=== PATIENT | male | born 2005 | race Caucasian/White ===

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

== ENCOUNTER 2024-09-12 09:16 | Outpatient (CLI) | payer BC, SELFPAY ==
--- NOTE | ~2024-09-12 | XR_ITS ---
XR wrist RT min 3V Ordering provider: Bernard Holloway MD History: . M25.531 - Pain in right wrist . Comparison: None. FINDINGS: BONES: No acute fracture or dislocation. No definite scaphoid fracture. JOINT SPACES: Normal. SOFT TISSUES: Normal. IMPRESSION: No acute osseous abnormality right wrist. Reviewed, dictated and finalized at location A.
--- OUTSIDE RECORDS SUMMARY | 2024-09-12 10:13 | XMS_ITS | Clinical Summary ---
Author Organization [facility] [address] Address [address] [place] [phone] Care Team Providers Care Party Plan Selling Distributor Name Role Phone Apolinar Quarles MD Primary Care Prov ider Allergies No known active allergies Medications meloxicam (MOBIC) 15 mg tabletIndication s:Acute pain of right wrist Take 1 tablet (15 mg total) by mouth daily for 14 days 14 tablet 06/08/2024 Active Active Problems Problem Noted Date Diagnosed Date Acute left ankle pain 11/05/2021 Family History Medical History Relation Name Comments Diabetes Maternal Grandfather Heart disease Maternal Grandfather Hypertension Maternal Grandfather Clotting disorder Maternal Grandmother Hypertension Maternal Grandmother Rheum arthritis Maternal Grandmother Hypertension Mother Rheum arthritis Mother's Brother Cancer Paternal Grandfather Relation Name Status Comments Maternal Grandfather Maternal Grandmother Mother Mother's Brother Paternal Grandfather Social History Tobacco Use Types Packs/Day Years Used Date Smoking Tobacco: Never Smokeless Tobacco: Never Tobacco Cessation:Counseling Given: Not Answered Sex and Gender Information Value Date Recorded Sex Assigned at Not on file Legal Sex Male 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 Gender Identity Not on file Sexual Orientation Not on file 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61 06/08/2024 5:17 PM GRIT 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 Plan of Treatment Health Maintenance Due Date Last Done Comments Depression Screening 2003 Hepatitis C Screening 2003 DTaP/Tdap/Td Vaccine (1 - Tdap) 2014 Varicella Vaccines (1 of 2 - 13+ 2-dose series) 2016 HPV Vaccines (1 - Male 3-dos e series) 2018 Meningococcal B Vaccine (1 o f 2 - Standard) 2019 Hepatitis B Screening 2021 Regular Well Visit/Exam 18-64 2021 Covid-19 Vaccine (3 - 2023-2 5 season) 2024 10/07/2020, 09/16/2020 Influenza Vaccine (#1) 2024 Meningococcal Vaccine Aged Out No michele mark eligible based on patient's age to complete this topic Pneumococcal vaccine <65 Aged Out No longer eligible based on patient's age to complete this topic Insurance [employer] O[employer] ACCESS OOS [employer] ACCESS OOS Care Teams Party Plan Selling Distributor Relationship Specialty Start Date End Date Apolinar Quarles MD [address] [place] [id number] PCP - General Family Medicine 08/25/21
--- OUTSIDE RECORDS SUMMARY | 2024-09-12 10:13 | XMS_ITS | Clinical Summary ---
Author Organization [facility] Address [address] [facility] [place] [address] Care Team Providers Care Louver Mortiser Operator Name Role Phone Apolinar Quarles MD Primary Care Provider + Source Comments [facility] [id number],non-owned Affiliates and Associated Physician Practices is amultiple site organization consisting of ambulatory clinics and hospital sitesin [place], [place], [place] and [place]. This disclosure is being madepursuant to the Care Everywhere program and may not contain all information available regarding this patient. Last updated 18.[id number] Allergies No known active allergies Medications Be aware that medications may not be up to date on this document. Always verify current medications with the patient. No known medications Family History Medical History Relation Name Comments Hypertension Mother Relation Name Status Comments Mother Alive Social History Tobacco Use Types Packs/Day Years Used Date Smoking Tobacco: Never Smokeless Tobacco: Never Comments:non smoking home Sex and Gender Information Value Date Recorded Sex Assigned at Not on file Gender Identity Not on file Sexual Orientation Not on file Last Filed Vital Signs Vital Sign Reading Time Taken Comments Blood Pressure 110/62 09/05/2020 5:37 PM CDT Pulse 70 09/05/2020 5:37 PM CDT Temperature 36.8 C (98.3 F) 09/05/2020 5:37 PM CDT Respiratory Rate 20 09/05/2020 5:37 PM CDT Oxygen Saturation 99% 07/03/2019 11:25 AM LICENSED PHYSICAL THERAPIST ASSISTANT Inhaled Oxygen Concentration - - Weight 77.1 kg (170 lb) 09/05/2020 5:37 PM CDT Height 192 cm (6' 3.59 ) 09/05/2020 5:37 PM CDT Body Mass Index 20.92 09/05/2020 5:37 PM CDT Plan of Treatment Health Maintenance Due Date Last Done Comments HIV SCREENING 2018 HPV VACCINE (1 - Male 3-dose series) 2018 MENINGOCOCCAL (Group B) VACC INE SHARED DECISION-MAKING (1 of 2 - Standard) 2019 HEPATITIS C SCREENING 04/20/2021 DTAP/TDAP/TD VACCINES (1 - Tdap) 2022 HEPATITIS B VACCINE (1 of 3 - 19+ 3-dose series) 2022 COVID-19 VACCINE (1 - 2023-2 5 season) 2024 INFLUENZA VACCINE (#1) 2024 DEPRESSION SCREENING 06/22/2024 ZOSTER VACCINE (1 of 2) 2053 HIB VACCINE Aged Out No longer eligi ble based on patient's age to complete this topic MENINGOCOCCAL GROUPS A/C/Y/W VACCINE Aged Out No longer eligible b ased on patient's age to complete this topic PNEUMOCOCCAL VACCINE Aged Out No long er eligible based on patient's age to complete this topic Care Teams Louver Mortiser Operator Relationship Specialty Start Date End Date Apolinar Quarles MD [address] [address] PCP - General Family Medicine 02/04/17
--- OUTSIDE RECORDS SUMMARY | 2024-09-12 10:13 | XMS_ITS | Referral Summary ---
Author Organization [facility] [address] [place] Address [address] [place] [phone] Care Team Providers Care Chopper Feeder Name Role Phone Apolinar Quarles MD Primary Care Prov ider Allergies No known active allergies Medications meloxicam (MOBIC) 15 mg tabletIndication s:Acute pain of right wrist Take 1 tablet (15 mg total) by mouth daily for 14 days 14 tablet 06/08/2024 Active Active Problems Problem Noted Date Diagnosed Date Acute left ankle pain 11/05/2021 Social History Tobacco Use Types Packs/Day Years Used Date Smoking Tobacco: Never Smokeless Tobacco: Never Tobacco Cessation:Counseling Given: Not Answered Sex and Gender Information Value Date Recorded Sex Assigned at Not on file Legal Sex Male 11:00 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 Gender Identity Not on file Sexual Orientation Not on file 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 file Not on file Not on file Last Filed Vital Signs Vital Sign Reading Time Taken Comments Blood Pressure 124/74 06/08/2024 5:17 PM CAREER 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 Pulse 66 06/08/2024 5:17 PM CAREER 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 Temperature 37 C (98.6 F) 06/08/2024 5:17 PM CAREER 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 Respiratory Rate 20 06/08/2024 5:17 PM CAREER 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 Oxygen Saturation 99% 06/08/2024 5:17 PM CAREER 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 Inhaled Oxygen Concentration - - Weight 89.3 kg (196 lb 14.4 oz) 06/08/2024 5:17 PM CAREER 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 Height 190.5 cm (6' 3 ) 06/08/2024 5:17 PM CAREER 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 Body Mass Index 24.61 06/08/2024 5:17 PM CAREER 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 Plan of Treatment Not on file Insurance [employer] ACCESS OOS [employer] OOS [employer] OOS Care Teams Chopper Feeder Relationship Specialty Start Date End Date Apolinar Quarles MD [address] [place] [address] PCP - General Family Medicine 08/25/21
--- OUTSIDE RECORDS SUMMARY | 2024-09-12 10:13 | XMS_ITS | Encounter Summary ---
Author Organization [facility] Address [address] [place] [address] Care Team Providers Care Director Mission Name Role Phone Apolinar Quarles MD Primary Care Prov ider Encounter Details Date Type Department Care Team (Late st Contact Info) Description 11/08/2021 Telephone [facility] [id number] [place] [phone] Rosy Mason, RT Social History Tobacco Use Types Packs/Day Years Used Date Smoking Tobacco: Never Smokeless Tobacco: Never Sex and Gender Information Value Date Recorded Sex Assigned at Not on file Legal Sex Male 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
== END 2024-09-12 09:17 | disposition home or self-care (01) ==
PROVIDERS: PCP Family Medicine Adolescent Medicine; Visit Provider Plastic Surgery
DX: M25.531 Pain in right wrist (principal)
CPT/HCPCS: 73110

== ENCOUNTER 2025-03-04 22:10 | Emergency (ER) | payer BC, SELFPAY ==
--- NOTE | ~2025-03-04 | CT_ITS ---
EXAMINATION: CT brain wo con COMPARISON: None HISTORY: hea dinjury TECHNIQUE: Axial images were obtained through the brain without IV contrast. CT scan performed using dose optimization techniques including the following automated exposure control; adjustment of mA and/or kV; use of iterative reconstruction technique. Automatic exposure control was used to reduce radiation dose. Permanent radiation dose record is archived to PACS. FINDINGS: No acute infarct or parenchymal hemorrhage. No abnormal mass or mass effect. No midline shift. No extra-axial fluid collections. No hydrocephalus. . Mastoid air cells unremarkable. Sinuses and orbits unremarkable. No acute fracture. No significant facial or scalp soft tissue swelling evident. No radiopaque foreign body is seen. Impression: 1.No acute intracranial abnormality. Reviewed, dictated and finalized at location A. Impression: 1.No acute intracranial abnormality.
--- OUTSIDE RECORDS SUMMARY | 2025-03-04 22:13 | XMS_ITS | Clinical Summary ---
Author Organization [facility] [employer] Address [address] [facility] [place] [address] Care Team Providers Care Lithographic Photographer Name Role Phone Apolinar Quarles MD Primary Care Provider + Source Comments [facility] [employer],non-owned Affiliates and Associated Physician Practices is amultiple site organization consisting of ambulatory clinics and hospital sitesin [place], [place], [place] and [place]. This disclosure is being madepursuant to the Care Everywhere program and may not contain all information available regarding this patient. Last updated 18.[employer] Allergies No known active allergies Medications * Be aware that medications may not be up to date on this document. Alwaysverify current medications with the patient. No known medications Family History Medical History Relation Name Comments Hypertension Mother Relation Name Status Comments Mother Alive Social History Tobacco Use Types Packs/Day Years Used Date Smoking Tobacco: Never Smokeless Tobacco: Never Comments:non smoking home Sex and Gender Information Value Date Recorded Sex Assigned at Not on file Legal Sex Male 5:43 AM STRUCTURAL LAYOUT WORKER Gender Identity Not on file Sexual Orientation Not on file Last Filed Vital Signs Vital Sign Reading Time Taken Comments Blood Pressure 110/62 09/05/2020 5:37 PM CDT Pulse 70 09/05/2020 5:37 PM CDT Temperature 36.8 C (98.3 F) 09/05/2020 5:37 PM CDT Respiratory Rate 20 09/05/2020 5:37 PM CDT Oxygen Saturation 99% 07/03/2019 11:25 AM STRUCTURAL LAYOUT WORKER Inhaled Oxygen Concentration - - Weight 77.1 kg (170 lb) 09/05/2020 5:37 PM CDT Height 192 cm (6' 3.59) 09/05/2020 5:37 PM CDT Body Mass Index [...] of 3 - 19+ 3-dose series) 2022 DEPRESSION SCREENING 06/22/2024 COVID-19 VACCINE (1 - 2023-2 5 season) 2025 INFLUENZA VACCINE (#1) 2025 ZOSTER VACCINE (1 of 2) 2053 HIB VACCINE Aged Out No longer eligi ble based on patient's age to complete this topic MENINGOCOCCAL GROUPS A/C/Y/W VACCINE Aged Out No longer eligible b ased on patient's age to complete this topic PNEUMOCOCCAL VACCINE Aged Out No long er eligible based on patient's age to complete this topic Care Teams Lithographic Photographer Relationship Specialty Start Date End Date Apolinar Quarles MD [address] [place] [id number] PCP - General Family Medicine 02/04/17
--- OUTSIDE RECORDS SUMMARY | 2025-03-04 22:13 | XMS_ITS | Clinical Summary ---
Author Organization [facility] [address] [place] Address [address] [place] [phone] Care Team Providers Care Treatment Technician Name Role Phone Apolinar Quarles MD Primary Care Prov ider Allergies No known active allergies Medications No known medications Active Problems Problem Noted Date Diagnosed Date Closed displaced fracture of scaphoid bone of le ft wrist 09/23/2024 Acute left ankle pain 11/05/2021 Encounters Date Type Department Care Team Description 12/09/2024 8:45 AM CDT Office Visit [facility] [address] [place] [phone] Kadie Clark PA Post-operative state (Primary Dx) 12/09/2024 8:30 AM CDT - 12/09/2024 11:59 PM CDT Hospital Encounter [facility] [address] [place] [phone] Post-operative state Discharge Disposition: Discharge to home or self care from Last 3 Months Surgical History Surgery Date Site/Laterality Comments NO PAST SURGERIES Family History Medical History Relation Name Comments [...] Tobacco: Never Tobacco Cessation:Counseling Given: Not Answered AUDIT-C Answer Date Recorded Q1: How often do you have a drink containing alcohol? Never 09/23/2024 Q2: How many drinks containi ng alcohol do you have on a typical day when you are drinking? Patient does not drink Q3: How often do you have si x or more drinks on one occasion? Never 09/23/2024 Personal Safety Answer Date Recorded Have you ever been in or are you currently in a harmful physical or emotional relationship or is someone making you feel afraid or unsafe? 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 Not on file Not on file Obstetrics History Last Filed Vital Signs Vital Sign Reading Time Taken Comments Blood Pressure 133/62 09/28/2024 3:45 PM CDT Pulse 63 09/28/2024 3:45 PM CDT Temperature 36.7 C (98 F) 09/28/2024 3:30 PM CDT Respiratory Rate 18 09/28/2024 3:45 PM CDT Oxygen Saturation 97% 09/28/2024 3:45 PM CDT Inhaled Oxygen Concentration - - Weight 91.4 kg (201 lb 6.4 oz) 09/28/2024 9:30 A M CDT Height 190.5 cm (6' 3) 06/08/2024 5:17 PM ECHOCARDIOGRAPH TECHNICIAN Body Mass Index 25.17 06/08/2024 5:17 PM ECHOCARDIOGRAPH TECHNICIAN Plan of Treatment Health Maintenance Due Date [...] Visit/Exam 18-64 2021 Covid-19 Vaccine (3 - 2024-2 6 season) 2025 10/07/2020, 09/16/2020 Influenza Vaccine (#1) 2025 Meningococcal Vaccine Aged Out No michele mark eligible based on patient's age to complete this topic Pneumococcal vaccine <65 Aged Out No longer eligible based on patient's age to complete this topic Medical Devices Implanted Type Area Cafeteria Attendant Device Identifier Shelf Expiration Date Model / Serial / Lot Skeletal [employer] Screw Bone Full Thread Locking Reduct 2.5x22mm Ti [facility]-[id number] - [id number] Implanted:Qty: 1 on 09/28/2024 by Doreen Hooker MD at [facility] Left: Wrist Skeletal Dynamics [id number] / / Procedures Procedure Name Priority Date/Time Associated Diagnosis Comments XR WRIST LEFT 3 OR MORE VIEWS Schedule Routine, Read Routine (OP Routine) 12/09/2024 8:35 AM CDT Post-operative state from Last 3 Months Results * XR Wrist Left 3 or More Views (12/09/2024 8:35 AM CDT) Anatomical Region Laterality Modality Upper Extremities, Wrist Left Compute d Radiography 12/15/2024 9:55 PM CDT Narrative 12/15/2024 9:57 PM CDT EXAM DESCRIPTION: 1. XR WRIST LEFT 3 OR MORE VIEWS REASON FOR STUDY: pain Injury/fx 09/19/24, ORIF done 09/28/24, No current pain FINDINGS: Three views submitted with comparison 11/10/2024. Healing, internally fixated left scaphoid waist fracture. The joint spaces are normal. No dorsal wrist soft tissue swelling. IMPRESSION: 1. Healing, internally fixated left scaphoid waist fracture. THIS IS AN ELECTRONICALLY VERIFIED FINAL REPORT 12/15/2024 9:57 PM - Electronically signed by Alfonso Yu M.D. T: Report ID: [id number] Reading Location: [id number] Procedure Note Alfonso Yu MD - 12/15/2024 EXAM DESCRIPTION: 1. XR WRIST LEFT 3 OR MORE VIEWS REASON FOR STUDY: pain Injury/fx 09/19/24, ORIF done 09/28/24, No current pain FINDINGS: Three views submitted with comparison 11/10/2024. Healing, internally fixated left scaphoid waist fracture. The jointspaces are normal. No dorsal wrist soft tissue swelling. IMPRESSION: 1. Healing, internally fixated left scaphoid waist fracture. THIS IS AN ELECTRONICALLY VERIFIED FINAL REPORT 12/15/2024 9:57 PM - Electronically signed by Alfonso Yu M.D. T: Report ID: [id number] Reading Location: [place] [address] us Kadie NICHOLAS IMG XR PROCEDURES Final Result from Last 3 Months Insurance Bid [employer]erd OOS [employer]OS [employer] Care Teams Treatment Technician Relationship Specialty Start Date End Date Apolinar Quarles MD PCP - General Family Medicine 08/25/21
[2025-03-04 22:20] VITALS: BP 152/67; PULSE 67; RESP 18; TEMP 37.1; O2SAT 100
--- NOTE | 2025-03-05 02:28 | ED.DIZZY ---
HPI - Dizziness General Chief Complaint: Dizziness Stated Complaint: dizziness from concussion Time Seen by Provider: 03/05/25 01:39 History of Present Illness HPI Narrative: Patient is a 19-year-old male who presents emergency department this evening complaining of vertigo. States that it started approximately a week ago when he hit his head on a wall. Patient states that he the back of his head. Admits that in the past he has issues with vertigo but states that he this bout was precipitated after this head injury. Admits that the symptoms/room spinning sensation is intermittent and mild and definitely positional. He is concerned that he may have gone concussion. Denies any additional symptoms or concerns. Denies any recent illness, fevers or chills. Related Data Home Medications ?Medication ?Instructions ?Recorded ?Confirmed ?Last Taken ?Type No Home Medications 09/05/24 09/05/24 Unknown History Allergies Allergy/AdvReac Type Severity Reaction Status Date / Time No Known Allergies Allergy Verified 03/04/25 22:23 Review of Systems Review of Systems: All systems are reviewed and are negative unless stated otherwise in the HPI. [facility] Past Medical History Medical History History of concussion Family History Family History Grandparent Acute myocardial infarction Other Hypertension Social History Social History Smoking status: Never smoker Alcohol intake: current Alcohol use details: Every few months Substance use: never Living arrangements: with family Occupation/Education: occupation Additional occupation/education comments: [employer] Gender identity (if verbalized by the patient): Male Exam Narrative: General: Alert, awake, afebrile, in no acute distress. HEENT: PERRL, no rhinorrhea, no post nasal drip, oropharynx clear, clear bilateral tympanic membranes. Neck: Trachea midline, no JVD, no lymphadenopathy. Cardiovascular: Regular rate and rhythm, no murmurs, rubs or gallops, no peripheral edema. Respiratory: Clear to auscultation bilaterally, no tachypnea, no wheezing, no rhonchi, no rubs, no respiratory distress. Abdomen: Soft, nontender, nondistended, no rebound, no guarding, no peritoneal signs. Musculoskeletal: No joint swelling or deformity, normal muscle tone. Skin: No rashes or petechia, no signs of infection. Psychiatric: Alert and oriented, normal behavior and judgment for situation. Neurological: Alert and oriented to person, place, and time. Follows all commands. No focal deficits, speech is clear and fluent. Course Vital Signs Vital signs: Vital Signs Temperature 98.7 F 03/04/25 22:20 Pulse Rate 67 03/04/25 22:20 Respiratory Rate 18 03/04/25 22:20 Blood Pressure 152/67 H 03/04/25 22:20 Pulse Oximetry 100 03/04/25 22:20 Oxygen Delivery Room Air 03/04/25 22:20 Temperature 98.7 F 03/04/25 22:20 Pulse Rate 67 03/04/25 22:20 Respiratory Rate 18 03/04/25 22:20 Blood Pressure 152/67 H 03/04/25 22:20 Pulse Oximetry 100 03/04/25 22:20 Oxygen Delivery Room Air 03/04/25 22:20 MDM - Dizziness MDM Narrative Medical decision making narrative: The patient was evaluated by myself in the emergency department. History is obtained from patient who is an independent historian and physical exam was performed. External medical records were reviewed at this time. Imaging studies obtained included CT brain without IV contrast which was independently interpreted by me revealing no acute process, which is pending final radiology interpretation. Differential diagnosis considerations include benign positional vertigo, dehydration, acute viral syndrome, infectious process such as otitis media. Comorbidities impacting this visit include history of vertigo. I have evaluated and discussed social determinants of health with the patient that could potentially impact subsequent diagnosis and treatment plans. On repeat assessment of the patient, reevaluation revealed that the patient is doing well and is in no acute distress. Patient symptoms have remained stable since he arrived to our emergency department. Repeat vital signs were all reviewed and noted to be stable. Differential diagnosis and treatment plan were discussed with the patient at bedside. Patient agrees with discussion and after shared medical decision making agrees with discharge. All questions were answered to the patient's satisfaction. Patient will follow up with ENT in 3-5 days. Patient was provided with strict return precautions and instructed to return to the emergency department if any new or worsening symptoms develop. The patient was discharged in stable condition. Discharge Plan Discharge Clinical Impression: Benign paroxysmal positional vertigo Patient Disposition: Home Condition: Improved Instructions: Antibiotic Form, Benign Paroxysmal Positional Vertigo (ED) Additional Instructions: Please follow-up with ENT provider your provided with today within the next 3-5 days. Return emergency department if any new or worsening symptoms develop. Patient Language: Persian Prescriptions: No Action No Home Medications Follow-up/Referrals: Guille Romero MD [Physician, Ear, Nose, Throat] - 3 Days Apolinar Quarles MD [Primary Care Provider, Family Practice] Time of Disposition: 03:24
[2025-03-05 03:41] VITALS: BP 129/85; PULSE 68; RESP 18; O2SAT 99
== END 2025-03-05 03:42 | disposition home or self-care (01) ==
PROVIDERS: Emergency Provider Emergency Medicine; PCP Family Medicine Adolescent Medicine
DX: H81.10 Benign paroxysmal vertigo, unspecified ear (principal)
CPT/HCPCS: 70450; 99284